=== PATIENT | male | born 1935 | race Caucasian/White ===

== ENCOUNTER → 2019-02-28 | Outpatient (CLI) | payer OTHER ==
[~2019-02-28] VITALS: Ht 175.3 cm; Wt 85.3 kg
[~2019-02-28] MED LIST: REGADENOSON 0.4 MG/5 ML PF SYG IVP SCH
== END | disposition home or self-care (01) ==
LOC: SHCH 07:57
PROVIDERS: ATTEND Internal Medicine Cardiovascular Disease
DX: I25.10 Atherosclerotic heart disease of native coronary artery without angina pectoris (principal)
CPT/HCPCS: 78452; 93017; 96374; A9500 ×2; J2785

== ENCOUNTER → 2019-03-13 | Outpatient (CLI) | payer OTHER | END | disposition home or self-care (01) | LOC: SHCH 14:18 → EDUNIT# 14:50 | PROVIDERS: ATTEND Internal Medicine Cardiovascular Disease | DX: I73.9 Peripheral vascular disease, unspecified (principal) | CPT/HCPCS: 93925 ==

== ENCOUNTER 2019-05-02 06:21 | Observation (INO) | payer OTHER ==
[2019-04-28 12:09] VITALS: BP 138/70
[2019-04-28 12:22] LABS: BASOPHILS % (AUTO) 0.7 % (0.0-5.0); EOSINOPHILS % (AUTO) 2.3 % (0.0-8.0); HEMATOCRIT 42.9 % (42-54); LYMPHOCYTES % (AUTO) 19.3 % (21.0-51.0); MEAN CORPUSCULAR HEMOGLOBIN 31.2 pg (27.0-33.0); MEAN CORPUSCULAR VOLUME 91.7 fL (79-99); MONOCYTES % (AUTO) 8.1 % (3.0-13.0); NEUTROPHILS % (AUTO) 69.1 % (40.0-77.0); PLATELET COUNT (AUTO) 118 K/uL (130-400); RED BLOOD CELL COUNT(AUTO) 4.68 MIL/uL (4.50-6.20); RED CELL DISTRIBUTION WIDTH 12.6 % (11.0-15.5); WHITE BLOOD COUNT (AUTO) 4.3 K/uL (4.8-10.8)
[2019-04-28 12:23] LABS: APPEARANCE,URINE Clear (CLEAR); BILIRUBIN,URINE Negative (NEGATIVE); COLOR,URINE Yellow (YELLOW); GLUCOSE, URINE (UA) Negative (NEGATIVE); KETONES,URINE Negative (NEGATIVE); LEUKOCYTE ESTERASE ,URINE Negative (NEGATIVE); NITRATE,URINE Negative (NEGATIVE); OCCULT BLOOD,URINE Negative (NEGATIVE); PH,URINE 7.5 (5.0-8.0); PROTEIN,URINE Trace mg/dL (NEGATIVE); UROBILINOGEN,URINE 0.2 mg/dL (0.2-1.0)
[2019-04-28 12:38] LABS: POTASSIUM 4.7 mmol/L (3.5-5.1)
[2019-04-28 12:40] LABS: INR 1.07 (0.85-1.15); PARTIAL THROMBOPLASTIN TIME 25.3 SEC (26.3-35.5); PROTHROMBIN TIME 11.2 SEC (9.6-11.6)
[2019-04-28 13:46] LABS: BACTERIA,URINE Rare /HPF (None Seen); RBC,URINE 0-1 /HPF (0-1); SQUAMOUS EPITHELIAL CELL,UR 0-2 /HPF (0-2); WBC,URINE None Seen /HPF (0-1)
--- NOTE | 2019-05-01 15:07 | NUR ---
LABS INFORMED IVETTE GUZMAN OF ABNORMAL PLATELET AND CHEST XRAY REPORT. NO ORDERS RECEIVED. PROCEED WITH PLANNED PROCEDURE.
[2019-05-02] VITALS (14 sets, daily range): BP systolic 124–166; BP diastolic 52–78
[~2019-05-02] VITALS: Ht 180.3 cm; Wt 85.5 kg
[~2019-05-02 06:21] MED LIST changes: +BERBERINE PO; +GLIP5TAB11 PO; +MAGNESIUM GLYCINATE PO; +METO100T14 PO; +OMEG-125 PO; +OMEP20CA12 PO; -REGADENOSON 0.4 MG/5 ML PF SYG IVP SCH; +ROSU20TA31 PO; +SODIUM CHLORIDE 0.9% 1000ML 1,000 ML IV SCH; +TAMS-1 PO; +VIT1CAPS47 PO; +[UNRECOGNIZED DRUG - OTHER] PO
[2019-05-02] MEDS ORDERED: SODIUM CHLORIDE 0.9% 1000ML 1,000 ML IV ONE (08:59)
[2019-05-02] MEDS ORDERED: IOHEXOL-350 50ML VIAL IV ONE (10:09)
[2019-05-02] MEDS ORDERED: IOHEXOL 350 MG/ML 100ML INFUS..BTL IV ONE (10:09)
[2019-05-02] MEDS ORDERED: SODIUM BICARB 50MEQ 50ML VIAL ONE (10:09)
[2019-05-02] MEDS ORDERED: HEPARIN SODIUM 1000UNIT/ML 10ML VIAL ONE (10:09)
[2019-05-02] MEDS ORDERED: MEPERIDINE-PF 25 MG/ML SYG ONE (10:09)
[2019-05-02] MEDS ORDERED: MIDAZOLAM HCL 1 MG/ML 2ML VIAL ONE (10:09)
[2019-05-02] MEDS ORDERED: NITROGLYCERIN 1 MG/VIAL VIAL IV ONE (10:09)
[2019-05-02] MEDS ORDERED: LIDOCAINE HCL 2% 20ML ONE (10:09)
[2019-05-02] MEDS ORDERED: ASPIRIN 81MG TAB.CHEW ONE (10:22)
[2019-05-02] MEDS ORDERED: CLOPIDOGREL BISULFATE 300 MG TAB ONE (11:09)
[2019-05-02] MEDS ORDERED: HYDRALAZINE HCL 20 MG/ML VIAL ONE (11:10)
[2019-05-02] MEDS ORDERED: LABETALOL 20 MG/4 ML DISP.SYRIN IV ONE (11:15)
[2019-05-02] MEDS: SODIUM CHLORIDE 0.9% 1000ML 1,000 ML IV SCH ×3 (11:27→21:27)
[2019-05-02] MEDS ORDERED: DEXTROSE 50%-WATER 50 ML DISP.SYRIN IV PRN (11:30)
[2019-05-02] MEDS ORDERED: ONDANSETRON HCL 4 MG/2 ML VIAL IVP PRN (11:30)
[2019-05-02] MEDS ORDERED: ACETAMINOPHEN-CODEINE 300/30MG TAB PO PRN ×2 (11:30)
[2019-05-02] MEDS ORDERED: GLUCAGON 1MG KIT 1 MG ML IM PRN (11:30)
--- NOTE | 2019-05-02 11:45 | NUR ---
Pt's blood sugar 183. Informed pt that I need to administer 4 units of insulin for his elevated blood sugar. Pt refused insulin stating that he has never had it before and does not want to take it now. He stated that he was not up to eating right now anyways. Pt took a few sips of milk.
[2019-05-02] MEDS ORDERED: CLOPIDOGREL BISULFATE 300 MG TAB PO SCH (12:45)
--- NOTE | 2019-05-02 13:46 | NUR ---
Pt's appetite returned. Pt requested chicken salad sandwich. Eating now.
--- NOTE | 2019-05-02 15:40 | NUR ---
Pt taken up to room 202 via wheelchair, report called prior to taking pt upstairs. Pt's dressing to right groin remains dry, clean and intact, site soft, non-tender. Fluids remain at 100 cc/hr. Pt care rendered over to nursing staff at bedside. No further questions from pt or staff at this time. Addendum: 05/02/19 at 1930 by AMRIT MATOS RN RN Notes should state that [facility] received pt upon pt's arrival to room 202.
--- NOTE | 2019-05-02 15:50 | NUR ---
RECEIVED VIA W/C TO ROOM 202. AAOX3, RESP.'S EVEN AND UNLABORED. DENIES ANY SOB, DENIES ANY CURRENT PAIN. CALL LIGHT WITHIN REACH.
[2019-05-02] MEDS: INSULIN HUMULIN R 100 UNIT/ML 3ML SQ SCH ×2 (16:30→21:00)
--- NOTE | 2019-05-02 17:00 | NUR ---
SITTING UP IN BED EATING DINNER W/O C/O. CALL LIGHT WITHIN REACH. SPOUSE AT BEDSIDE.
[2019-05-02] MEDS ORDERED: TAMSULOSIN HCL 0.4 MG CAP.ER.24H PO SCH (21:00)
[2019-05-02] MEDS ORDERED: **HM**Vit C/E/Zn/Coppr/Lutein/Zeaxan (Preservision Areds 2 Soft PO SCH (21:00)
[2019-05-02] MEDS: BERBERINE PO SCH (21:00)
[2019-05-02] MEDS ORDERED: [UNRECOGNIZED DRUG - OTHER] PO SCH (21:00)
[2019-05-02] MEDS ORDERED: ATORVASTATIN CALCIUM 20 MG TABLET PO SCH (21:00)
[2019-05-02] MEDS: GLIPIZIDE 5 MG TABLET PO SCH (21:23)
[2019-05-02] MEDS: METOPROLOL TARTRATE 50 MG TAB PO SCH (21:23)
[2019-05-03] MEDS: SODIUM CHLORIDE 0.9% 1000ML 1,000 ML IV SCH (03:14)
[2019-05-03 03:48] VITALS: BP 149/68
[2019-05-03 04:13] LABS: HEMATOCRIT 38.3 % (42-54); MEAN CORPUSCULAR HEMOGLOBIN 30.2 pg (27.0-33.0); MEAN CORPUSCULAR HGB CONC 33.7 g/dL (32.0-36.0); MEAN CORPUSCULAR VOLUME 89.7 fL (79-99); PLATELET COUNT (AUTO) 109 K/uL (130-400); RED BLOOD CELL COUNT(AUTO) 4.27 MIL/uL (4.50-6.20); RED CELL DISTRIBUTION WIDTH 12.6 % (11.0-15.5); WHITE BLOOD COUNT (AUTO) 5.4 K/uL (4.8-10.8)
[2019-05-03 04:36] LABS: CREATININE 0.9 mg/dL (0.5-1.5); POTASSIUM 3.8 mmol/L (3.5-5.1)
[2019-05-03] MEDS: INSULIN HUMULIN R 100 UNIT/ML 3ML SQ SCH (06:03)
[2019-05-03 07:43] VITALS: BP 147/62
[2019-05-03] MEDS: METOPROLOL TARTRATE 50 MG TAB PO SCH (08:42)
[2019-05-03] MEDS ORDERED: PANT40TA PO (08:42)
[2019-05-03] MEDS ORDERED: ASPI-1005 PO (08:42)
[2019-05-03] MEDS ORDERED: CLOP75TA14 PO (08:42)
[2019-05-03] MEDS: GLIPIZIDE 5 MG TABLET PO SCH (08:43)
[2019-05-03] MEDS: BERBERINE PO SCH (08:43)
[2019-05-03] MEDS ORDERED: FISH OIL 1000 MG/CAP PO SCH (09:00)
[2019-05-03] MEDS ORDERED: PANTOPRAZOLE SODIUM 40 MG TABLET.DR PO SCH (09:00)
[2019-05-03] MEDS ORDERED: ASPIRIN 81MG TAB.CHEW PO SCH (09:00)
[2019-05-03] MEDS ORDERED: CLOPIDOGREL BISULFATE 75 MG TAB PO SCH (09:00)
[2019-05-03] MEDS ORDERED: MAGNESIUM GLYCINATE 665 MG PO SCH (09:00)
== END 2019-05-03 11:46 | disposition home or self-care (01) ==
LOC: DAH 06:21 → DAHIP 06:22 → DAH 06:22 → 2AH 15:53
PROVIDERS: ADMIT Internal Medicine; ATTEND Internal Medicine
DX: I25.118 Atherosclerotic heart disease of native coronary artery with other forms of angina pectoris (principal); I10 Essential (primary) hypertension; R94.39 Abnormal result of other cardiovascular function study; E11.9 Type 2 diabetes mellitus without complications; E78.5 Hyperlipidemia, unspecified; N40.0 Benign prostatic hyperplasia without lower urinary tract symptoms; F17.200 Nicotine dependence, unspecified, uncomplicated; Z95.1 Presence of aortocoronary bypass graft; Z79.84 Long term (current) use of oral hypoglycemic drugs; Z79.899 Other long term (current) drug therapy
CPT/HCPCS: 36415 ×2; 71045; 80048 ×2; 80061; 81001; 82948 ×5; 85025; 85027; 85610; 85730; 93005; 93459; A4215; A4216; A4221; A4222; A4223 ×3; A4606; A4663; C1725 ×2; C1760; C1769; C1874; C1887; C1894; C9600; G0378 ×19; J0360; J1644 ×2; J3490 ×3; J7030 ×3; Q9965 ×2; Q9967 ×2; J2175; J2250